=== PATIENT | female | born 1995 | race American Indian/Alaskan Native ===

== ENCOUNTER 2018-11-21 04:40 | Emergency (ER) | payer MEDICARE, MEDICAID ==
[2018-11-21 05:08] LABS: Basophils % (Auto) 0.4 % (0.0-1.8); Eosinophils % (Auto) 0.7 % (0.0-4.3); Hematocrit 26.2 % (30.3-42.9); Hemoglobin 8.6 gm/dl (10.1-14.3); Lymphocytes # (Auto) 1.3 K/mm3 (1.2-5.4); Lymphocytes % (Auto) 18.8 % (13.4-35.0); Mean Corpuscular HGB Conc 33 % (30-34); Mean Corpuscular Hemoglobin 26 pg (28-32); Mean Corpuscular Volume 80 fl (79-97); Monocytes # (Auto) 0.4 K/mm3 (0.0-0.8); Monocytes % (Auto) 6.5 % (0.0-7.3); Platelet Count 358 K/mm3 (140-440); Red Blood Count 3.27 M/mm3 (3.65-5.03); Red Cell Distribution Width 18.9 % (13.2-15.2)
[2018-11-21 05:33] LABS: Alanine Aminotransferase 17 units/L (7-56); Albumin 3.4 g/dL (3.9-5); BUN/Creatinine Ratio 13; Blood Urea Nitrogen 5 mg/dL (7-17); Calcium 8.4 mg/dL (8.4-10.2); Hemolysis Index 8
--- NOTE | 2018-11-21 06:01 | XRay Report ---
FINAL REPORT EXAM: XR CHEST ROUTINE 2V HISTORY: SOB TECHNIQUE: PA and lateral chest radiographs PRIORS: None. FINDINGS: No mediastinal shift. Cardiac silhouette is not enlarged. No pneumothorax, effusion, or focal pulmon fabrice opacity. No acute skeletal finding. IMPRESSION: No focal pulmonary opacity.
--- NOTE | 2018-11-21 06:31 | Emergency Department Report ---
ED Shortness of Breath HPI - General Chief Complaint: Dyspnea/Respdistress Stated Complaint: LUPUS FLARE UP Time Seen by Provider: 11/21/18 06:00 Source: patient Mode of arrival: Ambulatory Limitations: No Limitations - History of Present Illness Initial Comments: 23-year-old female with history of lupus and CHF presents with shortness of breath that awoke patient from sleep this morning. The patient states she is currently on Lasix. However, says feels as if she has fluid building up in her lungs. Patient reports mild swelling to the bilateral lower extremities as well. Pt is from out of town, states she ran out of her lasix. Pt returns home tomorrow, states her refill has been filled and waiting for her at the pharmacy. Patient denies chest pain, cough, fever. Pt reports hx of PE 2 yrs ago. Currently on Xarelto. PCP: out of [facility] Complaint: shortness of breath -: This morning Severity: moderate Improves With: upright position Worsens With: lying flat Known History Of: congestive heart failure Associated Symptoms: denies other symptoms Treatments Prior to Arrival: none - Related Data Home Oxygen Therapy: No Previous Rx's Medication Instructions Recorded Last Taken Type Furosemide [Lasix] 80 mg PO QDAY #10 tablet 11/21/18 Unknown Rx Allergies Allergy/AdvReac Type Severity Reaction Status Date / Time Sulfa (Sulfonamide Allergy Anaphylaxis Verified 11/21/18 04:48 Antibiotics) sulfamethoxazole Allergy Anaphylaxis Verified 11/21/18 04:48 [From Bactrim] trimethoprim [From Bactrim] Allergy Anaphylaxis Verified 11/21/18 04:48 ED Review of Systems ROS: Stated complaint: LUPUS FLARE UP Other details as noted in HPI Comment: All other systems reviewed and negative Constitutional: denies: chills, fever Respiratory: orthopnea, shortness of breath. denies: cough Cardiovascular: denies: chest pain Musculoskeletal: arthralgia, other (reports edema) ED Past Medical Hx - Past Medical History Previous Medical History?: Yes Hx Hypertension: Yes Hx Pulmonary Embolism: Yes Additional medical history: Lupus, lupus Nephritis, Kidney biopsy, Endoscopy, Gastritis, pancreatitis, HTN, PE - Surgical History Past Surgical History?: Yes Additional Surgical History: Kidney Biopsy, Endoscopy - Social History Smoking Status: Former Smoker Substance Use Type: Marijuana - Medications Home Medications: Home Medications Medication Instructions Recorded Confirmed Last Taken Type Furosemide [Lasix] 80 mg PO QDAY #10 tablet 11/21/18 Unknown Rx ED Physical Exam - General Limitations: No Limitations General appearance: alert, in no apparent distress - Head Head exam: Present: atraumatic, normocephalic - Eye Eye exam: Present: normal appearance - ENT ENT exam: Present: normal exam, mucous membranes moist - Neck Neck exam: Present: normal inspection - Respiratory Respiratory exam: Present: normal lung sounds bilaterally. Absent: respiratory distress, wheezes, rales - Cardiovascular Cardiovascular Exam: Present: regular rate, normal rhythm - GI/Abdominal GI/Abdominal exam: Present: soft. Absent: distended, tenderness - Extremities Exam Extremities exam: Present: other (1+ pitting edema bilateral lower legs) - Neurological Exam Neurological exam: Present: alert, oriented X3 - Psychiatric Psychiatric exam: Present: normal affect, normal mood - Skin Skin exam: Present: warm, dry, intact, normal color ED Course Vital Signs 11/21/18 11/21/18 11/21/18 04:45 06:56 07:36 Temperature 99.1 F 98.6 F Pulse Rate 103 H 96 H Respiratory 20 18 13 Rate Blood Pressure 125/89 Blood Pressure 163/100 [Right] O2 Sat by Pulse 100 99 100 Oximetry 11/21/18 09:20 Temperature Pulse Rate 116 H Respiratory 13 Rate Blood Pressure Blood Pressure 155/103 [Right] O2 Sat by Pulse 100 Oximetry ED Medical Decision Making - Lab Data Result diagrams: 11/21/18 04:52 11/21/18 04:52 - EKG Data -: EKG Interpreted by Ia EKG shows normal: sinus rhythm, axis, intervals, QRS complexes, ST-T waves Rate: normal - EKG Data Interpretation: no acute changes - Radiology Data Radiology results: report reviewed - Medical Decision Making 23-year-old female with lupus, CHF, history of PE presents with shortness of breath, sensation of fluid overload. She states has been out of her Lasix. Chest x-ray negative, O2 sats normal. D-dimer result was elevated, so VQ scan was done to inability to obtain sufficient IV access. VQ results normal. Ally ent in no respiratory distress, comfortable, having conversation with without difficulty. Patient appears nontoxic. Patient states she'll be returning home tomorrow where she can get her Lasix prescription. Lasix 80 mg IV given here in ED. Will give prescription for Lasix in case patient unable to get home tomorrow. Will discharge at this time. - Differential Diagnosis pulm edema, PE, pneumonia, pleural effusion Critical care attestation.: If time is entered above; I have spent that time in minutes in the direct care of this critically ill patient, excluding procedure time. ED Disposition Clinical Impression: CHF exacerbation Disposition: DC-01 TO HOME OR SELFCARE Is pt being admited?: No Condition: Stable Instructions: Heart Failure (ED) Prescriptions: Furosemide [Lasix] 80 mg PO QDAY #10 tablet Referrals: PRIMARY CARE, [Primary Care Provider] - 3-5 Days Time of Disposition: 09:51
[2018-11-21] MEDS ORDERED: LASIX IV ONE (09:12)
[2018-11-21 09:21] VITALS: BP 155/103
--- NOTE | 2018-11-21 09:24 | Nuclear Medicine Report ---
LUNG SCAN, VENTILATION AND PERFUSION: History: Short of breath. Technique: 5mci of Tc99m MAA was infused for the perfusion images. 15mci XE 133 gas was inhaled for the ventilatory images. Correlation is made with a chest x-ray dated 11/21/18. Findings: Inhalation of Xenon gas demonstrates a normal distribution of the activity throughout both lungs. The wash out phases show no focal retention of activity. After injection of Technetium 99m macroaggregated albumin gamma camera imaging of the lungs in multiple projections demonstrates normal pulmonary contours with a homogeneous distribution of activity. No focal areas of perfusion deficiency are identified. IMPRESSION: Low probability for pulmonary embolus.
== END 2018-11-21 10:14 | disposition home or self-care (01) ==
LOC: ED 04:40
DX: I11.0 Hypertensive heart disease with heart failure (principal); M32.9 Systemic lupus erythematosus, unspecified; Z86.711 Personal history of pulmonary embolism; Z88.2 Allergy status to sulfonamides; Z87.891 Personal history of nicotine dependence
CPT/HCPCS: 36415; 71046; 78582; 80053; 83880; 84484; 84703; 85025; 85379; 93005; 93010; 96374; 99284; A9540; A9558; J1940